=== PATIENT | female | born 1965 | race Caucasian/White ===

== ENCOUNTER 2021-11-12 13:26 | Outpatient (RCR) | payer BC, SELFPAY | END 2021-11-29 13:12 | disposition home or self-care (01) | PROVIDERS: PCP Family Medicine; Visit Provider Family Medicine | DX: M54.2 Cervicalgia (principal); Z51.89 Encounter for other specified aftercare | CPT/HCPCS: 97140; 97162 ==

== ENCOUNTER 2022-09-17 11:00 | Emergency (ER) | payer BC, SELFPAY ==
[2022-09-17] VITALS (7 sets, daily range): BP systolic 106–108; BP diastolic 65–70; PULSE 85–100; RESP 18; TEMP 36.4; O2SAT 95–100; BMI 20.9
[2022-09-17] MEDS: 0.9 % SODIUM CHLORIDE 1000 ml 1,000 ML IV ×2 (12:03→13:12)
[2022-09-17] MEDS: ONDANSETRON 2 MG/ML inj 4 MG IVP (12:04)
[2022-09-17] MEDS: KETOROLAC 30 MG/ML inj IVP (12:06)
[2022-09-17] MEDS: diphenhydrAMINE 50 MG/ML inj 25 MG IVP (12:09)
[2022-09-17] MEDS: LORazepam 2 MG/ML inj 0.5 MG IVP (12:12)
--- NOTE | 2022-09-17 12:38 | ED.HA ---
HPI - Headache General Date Seen: 09/17/22 Chief Complaint: Headache/Migraine Stated Complaint: migraine/vomiting Time Seen by Provider: 09/17/22 11:03 Source: patient Mode of arrival: ambulatory Limitations: no limitations History of Present Illness HPI Narrative: Patient is a very nice 56 year old female presents here with the headache, this started yesterday, is characteristic of her headaches although seemingly more intense than it normally is. She did try to take 400 mg of ibuprofen overnight, but has had problems with vomiting, she has vomited up 4 times, and nausea associated with this, she describes her headache is bitemporal, she was on Zomig in the past but told to stop this is or some question of whether not she had previous TIAs. She denies a history of fevers chills head injury associated with this of visual changes or any auras. She does get headaches which she describes as migrainous which typically are like this, although not as intense. Denies a history of tick bites recent travel history or any other sickness leading up to this. Denies a history of alcohol or drugs, works at the [employer] which is very stressful. She has had previous neuro imaging done MD elicited complaint: headache Onset description: gradually Severity: severe Quality & Timing: aching, throbbing, progressively worsening and similar to previous headaches Exacerbating factors: light and noise Relieving factors: rest and dark room Context: occurred at rest Associated symptoms: none Treatments prior to arrival: ibuprofen Related Data Home Medications Medication Instructions Recorded Confirmed mirtazapine 15 mg tablet 7.5 mg PO DAILY 09/17/22 09/17/22 Allergies Allergy/AdvReac Type Severity Reaction Status Date / Time amoxicillin Allergy Verified 09/17/22 11:29 Review of Systems Status of ROS: Reports: 10 or more systems reviewed and unremarkable except as noted in History and below PFSH PFS Social History Smoking Status: Never smoker Do you use any of these nicotine containing products: None Second hand tobacco smoke exposure: No How often do you have a drink containing alcohol: monthly or less How many standard drinks containing alcohol do you have on a typical day: 1 or 2 How often do you have six or more drinks on one occasion: Never AUDIT-C Alcohol total score: 1 Non-prescribed substance use: denies use service: No Exam Narrative: Exam Narrative: Patient is speaking normally, no problem with slurring words, oriented x3. Head eyes ears nose and throat exam show equal pupils, no scleral icterus, extraocular muscles are normal, no facial droop, speech is normal, trachea normal and midline. Thyroid normal midline palpable not enlarged no meningismus is noted,. Chest shows symmetrical rise bilaterally, normal auscultation with no wheezes, no increased work of breathing, no overt bruising or lesions seen, no tenderness is noted on auscultation. Heart sounds normal with no S3-S4 no murmurs clicks or gallops. Abdomen shows no obvious masses or hepatosplenomegaly, no organomegaly, bowel sounds are normal in all quadrants. No tenderness is noted also in all quadrants. Upper and lower extremities show normal power, normal range of motion, pulses are normal, sensations normal, fine motor movements are normal, pelvis is stable to rocking. Cervical spine shows normal range of motion, and palpably not tender. Thoracic spine shows normal range of motion, and palpably not tender, lumbar spine shows no tenderness to palpation percussion and is otherwise normal range of motion. Skin shows no rashes, petechiae or eccymosis. Good power in upper lower extremities symmetrical, fingers nose testing normal, and rapid alternating movements normal. Did not see her walk in but her nurse tells me that she was not ataxic Const: Vital Signs, click to edit/add: Vital Signs - 24 hr 09/17/22 11:27 Temperature 97.6 F Pulse Rate [Right Pulse Oximeter] 85 Respiratory Rate 18 Blood Pressure [Ri ght Upper Arm] 106/70 Pulse Oximetry 100 Oxygen Delivery Me thod Room Air Documenting provider has reviewed patient's vital signs: yes Course Reevaluation(s) Time of Reevaluation #1: 13:27 Reevaluation #1: Patient reports that she is improved, I did associate professor of counseling her that we should give her 2nd bag of fluid, I reviewed the previous CT done on a previous admission, this was normal, I do not have access to the [facility] MRI from her visit at [facility]. She was comfortable with going home, she has person to drive her. Will give her prescription for some Zofran also too. Vital Signs Vital signs: Initial Vital Signs Temperature 97.6 F 09/17/22 11:27 Temperature Source Temporal Artery Scan 09/17/22 11:27 Pulse Rate 85 09/17/22 11:27 Respiratory Rate 18 09/17/22 11:27 Blood Pressure 106/70 09/17/22 11:27 Blood Pressure Mean 82 09/17/22 11:27 Blood Pressure Position Sitting 09/17/22 11:27 Pulse Oximetry 100 09/17/22 11:27 Oxygen Delivery Method Room Air 09/17/22 11:27 Vital Signs Temperature 97.6 F 09/17/22 11:27 Pulse Rate 85 09/17/22 11:27 Respiratory Rate 18 09/17/22 11:27 Blood Pressure 106/70 09/17/22 11:27 Pulse Oximetry 100 09/17/22 11:27 Oxygen Delivery Method Room Air 09/17/22 11:27 Temperature 97.6 F 09/17/22 11:27 Pulse Rate 85 09/17/22 11:27 Respiratory Rate 18 09/17/22 11:27 Blood Pressure 106/70 09/17/22 11:27 Pulse Oximetry 100 09/17/22 11:27 Oxygen Delivery Method Room Air 09/17/22 11:27 MDM - Headache MDM Narrative Medical decision making narrative: Life-threatening differential diagnosis include subarachnoid hemorrhage, meningitis, encephalitis, carbon monoxide poisoning, and intracerebral hemorrhage. Other differential diagnosis include but not limited to migraine, cluster headache, tension headache, SALES REPRESENTATIVE vasculitis, mass lesion, temporal arteritis, click acute closed angle glaucoma, septal and trigeminal neuralgia, sinusitis, closed head injury, and stroke I am reassured that this is like her previous headaches although worse, I have counseled her that I would like to start IV fluids, and medications see we can improve this I went risks benefits of the medications we described, and she would like to try these. She will need a explosives truck driver to take her home, and she will be tired. I do not think at the present time we need neuro imaging, or laboratory work and she is in agreement Discharge Plan Discharge Clinical Impression: Migraine, Headache Patient Disposition: Home w/ Parent or Adult Condition: Improved Instructions: Migraine Headache (ED), Acute Headache (ED) Additional Instructions: Home rest sleep, may use ibuprofen better dose would be 600 mg p.o. t.i.d., prescription given for nausea medicine that you can use. Follow-up with primary care for discussion return here if signs and symptoms of worsening. Activity Level: Light activity Prescriptions: No Action mirtazapine 15 mg tablet 7.5 mg PO DAILY Follow Up/Referrals: Cyndie Romero DO [Primary Care Provider] - Stand Alone Forms: [employer] Info Instructions
[2022-09-17] MEDS: METOCLOPRAMIDE HCL 10 MG in 0.9 % SODIUM CHLORIDE 100 ml 100 ML 306 MG IVPB (13:09)
== END 2022-09-17 14:38 | disposition home or self-care (01) ==
PROVIDERS: Emergency Provider Family Medicine; PCP Family Medicine
DX: R51.9 Headache, unspecified (principal)
CPT/HCPCS: 96365; 96375; 99284; J1200; J1885; J2060; J2405; J2765; J7030

== ENCOUNTER 2024-05-15 02:29 | Emergency (ER) | payer BC, SELFPAY ==
--- OUTSIDE RECORDS SUMMARY | 2024-05-15 02:31 | XMS_ITS | Clinical Summary ---
Author Organization [employer] [facility] Address [place], [place] [address] Care Team Providers Care Inside Sales Account Representative Name Role Phone Cyndie Romero DO Primary Care Provider [phone] Allergies Active Allergy Reactions Criticality Noted Date Comments Amoxicillin Rash 10/03/2013 Desipramine Hives,Rash 07/15/2020 Medications ibuprofen (ADVIL; MOTRIN) 200 mg tablet Take 2 tablets by mouth 4 times daily if needed. 0 10/03/2013 Active aspirin (ECOTRIN) 81 mg enteric coated tabletIndication s:Family history of ischemic heart disease Take 1 tablet by mouth once daily with a meal. 30 tablet 03/17/2020 10:40 AM SEO MARKETING SPECIALIST 03/18/2020 Active mirtazapine (REMERON) 15 mg tabletIndication s:Generalized anxiety disorder Take 1 Tablet (15 mg) by mouth at bedtime. 90 Tablet 3 09/18/2023 Active estradioL (ESTRACE) 0.01% (0.1 mg/g) vaginal creamIndications :Urethral polyp Insert 1 g into the vagina every Monday and Monday. 1 Each 3 09/18/2023 Active cholecalciferol (VITAMIN D3) 50,000 unit capsuleIndicatio ns:Vitamin D deficiency Take 1 Capsule (50,000 units) by mouth once weekly. 12 Capsule 09/19/2023 Active ZOLMitriptan (ZOMIG) 5 mg tabletIndication s:Migraine without aura and without status migrainosus, not intractable Take 1 Tablet (5 mg) by mouth 2 times daily if needed for Migraine. Give at minimum 2hrs apart. Max Dose: 10mg per 24hrs.TAKE 1 TABLET BY MOUTH 2 TIMES DAILY IF NEEDED FOR MIGRAINE. GIVE AT MINIMUM 2 HRS APART. MAX 2 TABLETS PER 24 HOURS 12 Tablet 1 01/01/2024 Active Active Problems Problem Noted Date Diagnosed Date Pap smear for cervical cancer screening 09/27/19 24 Overview (09/27/2023): 09/2023 NIL/HPV negative Plan: HPV based testing in 5 years Seizure disorder 03/17/2020 Overview (03/17/2020): Temporal discharges on EEG 03/16/2020 c/w seizure, which explains her presenting sxs. of expressive aphasia. Started on Keppra. Mitral valve insufficiency 05/29/2019 Chest discomfort 10/03/2013 Overview (10/11/2013): -10/08/2013 Stress ECHO Stress echo negative for ischemia at an adequate workload. Subjectively negative for anginal symptoms. Fair exercise tolerance. Stress EKG is borderline. Akash protocol for 9 minutes and 1 second, stopped due to fatigue. Resting heart rate of 102 increased to 159, which is 99% of her maximal age- predicted heart rate. Resting blood pressure of 102/60mmHg increased to 160/80. The double product was 27,000. Family history of ischemic heart disease 014 Overview (10/03/2013): Mother CO age 48 Palpitations 09/30/2013 Overview (10/17/2013): -03/02/2011 ECHO Anterior leaflet of the mitral valve is mildly thickened. I believe this is probably a myxomatous change and not vegetation. However, if there are fevers present then consideration for endocarditis. Sinus rhythm. Left ventricular ejection fraction is vigorous, 60%. Right ventricular contraction is normal. Mitral valve prolapse is present, I believe bileaflet based on image #7. The anterior leaflet of the mitral valve is thickened. Mitral insufficiency is visually moderate. The aortic, tricuspid and pulmonic valve are intact. The left atrium is mildly dilated. The right atrium is normal. There is no pericardial effusion. The inferior vena cava is normal. -07/18/2012 Holter monitor Sinus rhythm with HR 59 to 134 bpm with an average rate 81 bpm. There were no pauses. No ventricular ectopy. Rare ectopic atrial premature beats (4). One triplet, rate 160 bpm. Diary entry of heart pounding, felt like it was racing Sinus rhythm rate 113 bpm. -10/08/2013 ECHO Normal LV function, ejection fraction 65%. Moderate mitral regurgitation with anterior mitral leaflet prolapse. Mild tricuspid regurgitation. Borderline left atrial enlargement. -10/08/2013 Holter monitor Sinus rhythm with HR 53 to 150 bpm with an average rate of 84 bpm. No pauses. 1 isolated ventricular event. 9 supraventricular events isolated and 1 couplet. No symptoms recorded. Migraine headache 08/23/2013 Generalized anxiety disorder 04/19/2013 Encounters Date Type Department Care Team Description 05/14/2024 11:15 AM SEO MARKETING SPECIALIST Ancillary Procedure [facility] [address] [place] [address] Arrived 05/14/2024 10:45 AM SEO MARKETING SPECIALIST Office Visit [facility] [address] [place] [address] Shira Olvera PA Lump (Back) 05/14/2024 Travel from Last 3 Months Immunizations Name Administration Dates Next Due COVID-19 vaccine ([employer] 30mcg/0.3mL) P F, MDV 11/30/2020,11/03/2020 Influenza Virus, Unspecified 03/24/2010 Td (Age >=7 Years) 06/30/2003 Tdap 09/16/2010 Family History Medical History Relation Name Comments Other Brother Sudden ag e 52 either CO or epilepsy Pernicious anemia Brother Heart Disease Mother CO age 48 Hypertension Mother Pernicious anemia Paternal Grandfather Cancer-breast No Family History Cancer-colon No Family History Cancer-ovarian No Family History Cancer-prostate No Family History Relation Name Status Comments Brother Mother Paternal Grandfather Social History Tobacco Use Types Packs/Day Years Used Date Smoking Tobacco: Never Smokeless Tobacco: Never Tobacco Cessation:Counseling Given: Yes Alcohol Use Standard Drinks/Week Comments No 0 (1 standard drink = 0.6 oz pur e alcohol) minimal PHQ-2 Answer Date Recorded PHQ-2 TOTAL SCORE 3 09/18/2023 Social Connections Answer Date Recorded Do you often feel lonely or isolated from those around you? 0 09/18/2023 Financial Resource Strain Answer Date R ecorded Difficulty of Paying Living Expenses 3 09/18/2023 Difficulty of Paying Living Expenses Not on file 09/18/2023 Food Insecurity Answer Date Recorded Do you worry your food will run out before you are able to buy more? 1 09/18/2023 Transportation Needs Answer Date Record ed Does lack of transportation keep you from medica l appointments? 1 09/18/2023 Does lack of transportation keep you from work, meetings or getting things that you need? 1 09/18/2023 Housing Stability Answer Date Recorded What is your housing situation today? 1 09/18/2023 Utilities Answer Date Recorded Do you have trouble paying f or utilities (for example, heat, electricity, water, phone)? 1 09/18/2023 Comments No Sex and Gender Information Value Date Recorded Sex Assigned at Not on file Legal Sex Female 6:50 AM SEO MARKETING SPECIALIST Gender Identity Not on file Sexual Orientation Not on file Obstetrics History Last Filed Vital Signs Vital Sign Reading Time Taken Comments Blood Pressure 130/84 05/14/2024 10:43 AM SEO MARKETING SPECIALIST Pulse 106 05/14/2024 10:43 AM SEO MARKETING SPECIALIST Temperature 36.9 C (98.4 F) 11/24/2022 9:35 AM CDT Respiratory Rate 18 03/17/2020 9:00 AM SEO MARKETING SPECIALIST Oxygen Saturation 100% 05/14/2024 10: 43 AM SEO MARKETING SPECIALIST Inhaled Oxygen Concentration - - Weight 47.6 kg (104 lb 14.4 oz) 09/18/2023 8:18 AM CDT Height 157.5 cm (5' 2) 09/18/2023 8:18 AM CDT Body Mass Index 19.19 09/18/2023 8:18 AM CDT Plan of Treatment Upcoming Encounters Date Type Department Care Team (Late st Contact Info) Description 06/11/2024 8:30 AM CDT Office Visit [facility] [address] [place] [address] Cyndie Romero, [address] [place] [address] Health Maintenance Due Date Last Done Comments Pneumococcal series for age 50+ (1 of 2 - PCV) 10/30/1982 Colonoscopy through age 75 10/30/2008 Zoster (shingles) series for age 50+ (1 of 2) 10/30/2013 Tetanus booster 09/16/2020 09/16/2010, 06/30/2003 COVID-19 vaccine series ( season) 2023 11/30/2020, 11/03/2020 Influenza for age 50-64 12/03/2023 03/24/2010 BMI (ht and wt on same day) for age 18+ 09/17/2024 09/18/2023, 08/09/2022, 05/29/2019 Depression screening for age 12+ 09/17/2024 09/18/2023, 08/09/2022, 08/09/2022, Additional history exists Mammogram for age 45-75 09/21/2024 09/22/19 24, 08/19/2022, 01/26/2021, Additional history exists Lipids for age 45-75 09/17/2028 09/18/2023, 08/09/2022, 03/16/2020 Pap test for age 21-65 09/17/2028 09/18/2023, 2023 RSV vaccine for adults or (1 - 1-dose 75+ series) 10/30/2038 Tdap Completed 09/16/2010 HIV for age 15-65 Completed 08/09/2022 Hepatitis C screening for ag e 18-79 Completed 08/09/2022 Procedures Procedure Name Priority Date/Time Associated Diagnosis Comments US BACK SOFT TISSUE UPPER MIGUEL 05/14/2024 11:25 AM SEO MARKETING SPECIALIST Mass of subcutaneous tissue of back XR MAMMO ABIDA BILAT SCREEN Routine 09/22/2023 3:48 PM CDT Visit for screening mammogram LIPID PANEL W REFLEX MEASURED LDL Add On 09/18/2023 9:03 AM CDT Screening cholesterol level HPV HIGH RISK Routine 09/18/2023 8:54 AM CDT Screening for cervical cancer LC HIV-1/O/2, 4TH GENERATION Routine 08/09/2022 3:10 PM CDT Encounter for screening for HIV LC HCV ANTIBODY RFX TO QUANT PCR Routine 08/09/2022 3:10 PM CDT Need for hepatitis C screening test from Last 3 Months or Most Recently Relevant to Health Maintenance Results * US BACK SOFT TISSUE UPPER (05/14/2024 11:25 AM SEO MARKETING SPECIALIST) Anatomical Region Laterality Modality Ultrasound 05/14/2024 11:3 3 AM SEO MARKETING SPECIALIST Narrative 05/14/2024 11:33 AM SEO MARKETING SPECIALIST For Patients: As a result of the Century Cures Act, medical imaging exams and procedure reports are released immediately into your electronic medical record. You may view this report before your referring provider. If you have questions, please contact your health care provider. Indication: Mass of subcutaneous tissue of back Technique: Grayscale and color Doppler ultrasound of the left upper back soft tissues performed. Comparison: None Findings: Circumscribed isoechoic nonvascular structure within the subcutaneous fat in the left upper back measures 3.8 x 5.0 x 0.5 cm. No fluid collection or shadowing lesion. Impression: Subcutaneous lipoma measures 3.8 x 5.0 x 0.5 cm. Dictated by Iron Mackey MD @ 05/14/2024 11:33:30 AM (Electronically Signed) Procedure Note Iron Mackey MD - 05/14/2024 For Patients: As a result of the Cures Act, medical imagingexams and procedure reports are released immediately into your electronicmedical record. You may view this report before your referring provider.If you have questions, please contact your health care provider. Indication: Mass of subcutaneous tissue of back Technique: Grayscale and color Doppler ultrasound of the left upper back soft tissuesperformed. Comparison: None Findings: Circumscribed isoechoic nonvascular structure within the subcutaneous fatin the left upper back measures 3.8 x 5.0 x 0.5 cm. No fluid collection orshadowing lesion. Impression: Subcutaneous lipoma measures 3.8 x 5.0 x 0.5 cm. Dictated by Iron Mackey MD @ 05/14/2024 11:33:30 AM (Electronically Signed) us Shira WALTER US Final Result * XR MAMMO ABIDA BILAT SCREEN (09/22/2023 3:48 PM CDT) Anatomical Region Laterality Modality BREASTS, Breast Left, Breast Right Bilateral Mammography Impressions 09/22/2023 4:08 PM CDT There is no radiographic evidence for malignancy. Recommend annual mammograms. MAMMOGRAM ASSESSMENT: ACR 1 Negative PATIENTS: You will also receive a letter with your examination results in an easy to read format. If you have questions about your results, please contact your referring provider. Narrative 09/22/2023 4:08 PM CDT For Patients: As a result of the Century Cures Act, medical imaging exams and procedure reports are released immediately into your electronic medical record. You may view this report before your referring provider. If you have questions, please contact your health care provider. XR MAMMO ABIDA BILAT SCREEN [[id number]] CLINICAL HISTORY: This is an asymptomatic 57 y.o. patient. INDICATION FOR EXAM: Mammogram Screening. TECHNIQUE: CC & MLO views were obtained. This study was evaluated with the assistance of Computer-Aided Detection. Breast Tomosynthesis was used in interpretation. COMPARISON FILM: Yes 08/19/22 [facility] [facility] FINDINGS: The breasts are heterogeneously dense, which may obscure small masses. There are no dominant masses, suspicious micro calcifications or areas of architectural distortion. us Cyndie Stephanie Usmansamanthara DO MAMMO Final Result * LIPID PANEL W REFLEX MEASURED LDL (09/18/2023 9:03 AM CDT) CHOLESTEROL,TOTAL 182 100 - 199 mg/dL 09/18/2023 7:16 PM CDT [facility] Comment: Cholesterol, Total Reference Ranges Desirable <200 mg/dL Borderline 200-239 mg/dL High >=240 mg/dL TRIGLYCERIDES 132 <150 mg/dL 09/18/2023 7:16 PM CDT [facility] HDL CHOLESTEROL 54 >40 mg/dL 7:16 PM CDT [facility] NON-HDL CHOLESTEROL 128 <145 mg/dl 09/18/2023 7:16 PM CDT [facility] CHOL/HDL RATIO 3.37 <4.50 09/18/2023 7:16 PM CDT [facility] LDL CHOLESTEROL 102 <=130 mg/dL 09/18/2023 7:16 PM CDT [facility] VLDL CHOLESTEROL 26 <=30 mg/dL 09/18/2023 7:16 PM CDT [facility] PROVIDER ORDERED STATUS RANDOM 09/18/2023 7:16 PM CDT [facility] Blood BLOOD SPECIMEN / Unknown Venipuncture / Unknown 09/18/2023 9:03 AM CDT 09/18/2023 9:06 AM CDT us [id number] CHEMISTRY Final Result Performing Organization Address [facility] Co de Phone Number [facility] [address] [place] [address], * HPV HIGH RISK (09/18/2023 8:54 AM CDT) TYPE 16 Negative Negative 09/20/2023 3:46 PM CDT [facility] TYPE 18 Negative Negative 09/20/2023 3:46 PM CDT [facility] OTHER HIGH RISK TYPES Negative Negative 09/20/2023 3:46 PM CDT [facility] Other (Cervical) Non-Blood / Unknown 09/18/2023 8:54 AM CDT 09/19/2023 8:43 AM CDT Narrative [facility] - 09/20/2023 3:46 PM CDT HPV types 16, 18, 31, 33, 35, 39, 45, 51, 52, 56, 58, 59, 66 and 68 DNA were undetectable or below the pre-set threshold. Methodology: edPULSEas 4800 HPV Test [id number] MICROBIOLOGY Final Result Performing Organization Address [facility] Co de Phone Number [facility] [address] [place] [id number], * HCV ANTIBODY RFX TO QUANT PCR (08/09/2022 3:10 PM CDT) Pathologist [facility] HCV Ab Non Reactive Non Reactive 08/12/2022 3:08 AM CDT [facility] ([facility]) Blood BLOOD SPECIMEN / Unknown Venipuncture / Unknown 08/09/2022 3:10 PM CDT 08/09/2022 3:13 PM CDT [facility] ([facility]) - 08/12/2022 3:08 AM CDT Performed at: [address] [place] [id number] Grease Renderer: Noe Peñaloza MD, Phone: [phone] [facility] Final Resu lt Performing Organization Address City/[facility]/ZIP Co de Phone Number [facility] ([facility]) [address] [place] [address], * HIV-1/O/2, 4TH GENERATION (08/09/2022 3:10 PM CDT) Pathologist [facility] HIV Scr 4th Gen Non Reactive Non Reactive 08/11/2022 9:06 PM CDT [facility] ([facility]) Comment: HIV Negative HIV-1/HIV-2 antibodies and HIV-1 p24 antigen were NOT detected. There is no laboratory evidence of HIV infection. Blood BLOOD SPECIMEN / Unknown Venipuncture / Unknown 08/09/2022 3:10 PM CDT 08/09/2022 3:13 PM CDT [facility] ([facility]) - 08/11/2022 9:06 PM CDT Performed at: [address] [place] [id number] Grease Renderer: Noe Peñaloza MD, Phone: [phone] [facility] Final Resu lt Performing Organization Address City/[facility]/ZIP Co de Phone Number [facility] ([facility]) [address] [place] [address], from Last 3 Months or Most Recently Relevant to Health Maintenance Insurance [employer] Advance Directives Documents on File Type Date Recorded Patient Baggage Security Checker Expl anation Healthcare Directive 11/17/2020 021 * Full Code (Latest Code Status on File) Date Activated Date Inactivated Comments 03/15/2020 8:55 PM 03/17/2020 2:53 PM Question Answer Comments Code Status Discussion: Discussed Care Teams Inside Sales Account Representative Relationship Specialty Start Date End Date Cyndie Romero [place] [address] PCP - General Family Practice 08/19/22
[2024-05-15 02:37] VITALS: BP 115/81; PULSE 96; RESP 22; TEMP 36.6; O2SAT 100; BMI 18.5
--- NOTE | 2024-05-15 02:51 | ED.GENADULT ---
HPI - General Adult General Chief complaint: Back Injury/Pain Stated complaint: Severe right side and back pain Time Seen by Provider: 05/15/24 02:50 History of Present Illness HPI narrative: Yesterday left work early d/t right sided back pain, went away after two hours, went to bed, restarted at approx 0200 . Began right after eating lunch, no trouble with light dinner. states of nausea. denies difficulty urinating. states of some relief when laying down with knees up. 58-year-old woman presenting to the emergency department with complaint of right side abdomen and back pain. Began yesterday at work which point she went home minute resolved after couple of hours and started again now this morning maybe not quite as intense but still quite bad. Sharp. Settles then with a residual ache. Then sharp. Feels bit better bring her knees up. No dysuria frequency or hematuria. Does not have a history of food intolerances or heartburn. With later questioning she does admit she has had some kidney stones but she says on the left side and then with further reflection she says well maybe this could feel different. But notes also that she had hematuria when she had left-sided kidney stones and she has not had hematuria today. Remote neck fracture apparently as a kid. No significant history of back problems otherwise. Related Data Home Medications ?Medication ?Instructions ?Recorded ?Confirmed mirtazapine 15 mg tablet 7.5 mg PO DAILY 09/17/22 09/17/22 Previous Rx's ?Medication ?Instructions ?Recorded tamsulosin 0.4 mg capsule (Flomax) 0.4 mg PO DAILY #15 caps 05/15/24 Allergies Allergy/AdvReac Type Severity Reaction Status Date / Time amoxicillin Allergy Verified 09/17/22 11:29 Review of Systems Status of ROS: Reports: 6 or more systems reviewed and unremarkable except as noted in History and below [facility] Social History Smoking Status: Never smoker Do you use any of these nicotine containing products: None Second hand tobacco smoke exposure: No How often do you have a drink containing alcohol: monthly or less How many standard drinks containing alcohol do you have on a typical day: 1 or 2 How often do you have six or more drinks on one occasion: Never AUDIT-C Alcohol total score: 1 Non-prescribed substance use: denies use service: No Exam Narrative: Exam Narrative: Pleasant. Quiet. Blunted affect. Slim, small stature. Skin is warm and dry. Knees are bunched up, flexed at the hips. Well-perfused peripherally. Moving all extremities without difficulty. Abdomen is soft flat and nontender. Flanks also not clearly tender. Heart in elevated rate but regular rhythm. Lungs are clear. Const: Vital Signs, click to edit/add: Vital Signs - 24 hr 05/15/24 02:37 Temperature 97.9 F Pulse Rate [Pulse Oximeter] 96 Respiratory Rate 22 [facility] 115[facility]81 Pulse Oximetry 100 Oxygen Delivery Me thod Room Air Documenting provider has reviewed patient's vital signs: yes Course Vital Signs Vital signs: Initial Vital Signs Temperature 97.9 F 05/15/24 02:37 Temperature Source Temporal Artery Scan 05/15/24 02:37 Pulse Rate 96 05/15/24 02:37 Pulse Rhythm Regular 05/15/24 02:37 Respiratory Rate 22 05/15/24 02:37 Blood Pressure 115/81 05/15/24 02:37 Blood Pressure Mean 92 05/15/24 02:37 Blood Pressure Position Sitting 05/15/24 02:37 Pulse Oximetry 100 05/15/24 02:37 Oxygen Delivery Method Room Air 05/15/24 02:37 Vital Signs Temperature 97.9 F 05/15/24 02:37 Pulse Rate 96 05/15/24 02:37 Respiratory Rate 22 05/15/24 02:37 Blood Pressure 115/81 05/15/24 02:37 Pulse Oximetry 100 05/15/24 02:37 Oxygen Delivery Method Room Air 05/15/24 02:37 Temperature 97.9 F 05/15/24 02:37 Pulse Rate 88 05/15/24 04:38 Respiratory Rate 18 05/15/24 04:38 Blood Pressure 120/72 05/15/24 04:38 Pulse Oximetry 99 05/15/24 04:38 Oxygen Delivery Method Room Air 05/15/24 04:38 Medications Administered Medications: Discontinued Medications Generic Name Dose Route Start Last Admin Trade Name Freq PRN Reason Stop Dose Admin Lactated Ringer's 500 mls @ 500 mls/hr 05/15/24 03:03 05/15/24 04:31 Lactated Ringers 500 Ml IV 05/15/24 04:02 Infused .Q1H ONE Infusion Ketorolac Tromethamine 30 mg 05/15/24 03:06 05/15/24 03:32 Ketorolac 30 Mg/Ml Inj IVP 05/15/24 03:07 30 mg ONCE ONE Administration Ondansetron HCl 4 mg 05/15/24 03:06 05/15/24 03:32 Ondansetron Odt 4 Mg Tab PO 05/15/24 03:07 4 mg ONCE ONE Administration Tamsulosin HCl 0.4 mg 05/15/24 04:22 05/15/24 04:36 Tamsulosin Hcl 0.4 Mg Capsule PO 05/15/24 04:23 0.4 mg DAILY ONE Administration Medical Decision Making MDM Narrative Medical decision making narrative: I would suspect ureteral stone and related colic perhaps traversing the area of the psoas musculature at this point or above. Janet understandably would like to know for sure and so will proceed with CT imaging. I think there have been some concerns of potential appendicitis which I do not think is the issue here. Gallbladder disease possible as well but story and described location not exactly consistent Labs are reassuring though once obtained urine does show blood but no evidence of infection. Given IV fluids and pain controlled with ketorolac. Zofran. Overall is improved on reassessment. CT abdomen pelvis without IV contrast independently reviewed by me does show some punctate stones in the left renal parenchyma with 4-5 mm stone or so as well however the right renal collecting system shows a 4-5 mm proximal ureteral stone. Phleboliths in the pelvis. I suspect the right sided stone is the source of her pain I discussed these findings and treatment plan with Janet. Radiology over-read below Indication: Right flank pain, history of stones. Technique: CT of the abdomen and pelvis was performed without contrast. Comparison: None available. Findings: Visualized lung bases: Minimal dependent atelectasis in the visualized lung bases. Liver: Unremarkable for unenhanced technique. Gallbladder is unremarkable. No biliary ductal dilation. Pancreas: Unremarkable for unenhanced technique. Spleen: Unremarkable for unenhanced technique. Adrenals: Unremarkable for unenhanced technique. Kidneys: There is a right ureteropelvic junction calculus measuring 4 mm with mild right hydronephrosis. Nonobstructing left renal calculi measuring up to 5 mm in the lower pole. Aorta/IVC: Minimal atherosclerotic aortic calcifications without aneurysmal dilation. Lymph nodes: No lymphadenopathy. Bowel: Nonobstructed bowel. Scattered colonic diverticula without findings of acute diverticulitis. Appendix is normal. No intraperitoneal free air or fluid. Pelvis: Unremarkable. Bones/body wall: Unremarkable for age. Impression: 1. Right ureteropelvic junction calculus measuring 4 mm with mild right hydronephrosis. 2. Nonobstructing left renal calculi. Stone is close to 5 mm in size and would expect be passable but is rather high. See patient discharge plan for further discussion As discussed, I would touch base with your urology clinic/group in case you have trouble with stone passage. This should pass but it is still rather high up. Consider calling later today to set up a tentative appointment. Would also today call for a tentative appointment with the primary care provider. Be seen otherwise for uncontrolled pain, associated fever or stone not having passed within 5 days. Consider straining your urine over this next week. Take prescribed Flomax daily for ureteral spasm until suspect stone has passed. Also prescribing from [facility] Zofran for nausea and Percocet for significant pain. Otherwise can take ibuprofen up to 600 mg per dose. Generally stay well-hydrated. Medical Records Medical records reviewed: Yes I reviewed the patient's medical records Lab Data Lab results reviewed: Yes I reviewed the patient's lab results Labs: Lab Results 05/15/24 05/15/24 Range/Units 03:15 04:00 WBC 6.18 (4.50-11.00) K/uL RBC 4.22 (4.00-5.20) m/uL Hgb 12.8 (12.0-16.0) gm/dL Hct 38.3 (33.0-51.0) % MCV 91 (80-100) fL MCH 30 (26-34) pg MCHC 33 (32-36) gm/dL RDW Coeff of Edita 11.6 (11.5-15.5) % Plt Count 259 (140-440) K/uL Neut % (Auto) 66.0 (42.0-72.0) % Lymph % (Auto) 22.0 (20-44) % Harding % (Auto) 9.9 (0.0-11.0) % Eos % (Auto) 1.9 (0.0-7.0) % Baso % (Auto) 0.2 (0.0-3.0) % Neut # (Auto) 4.08 (1.7-7.0) K/uL Lymph # (Auto) 1.36 (0.90-2.90) K/uL Harding # (Auto) 0.60 (0.00-0.90) K/UL Eos # (Auto) 0.12 (0.00-0.50) K/uL Baso # (Auto) 0.01 (0.00-0.30) K/uL Abs Immat Gran (auto) 0.00 (0.00-0.30) K/uL Imm/Tot Granulo (auto) 0.0 % Sodium 139 (135-149) mmol/L Potassium 3.8 (3.6-5.1) mmol/L Chloride 104 (96-114) mmol/L Carbon Dioxide 27 (20-32) mmol/L Anion Gap 8 (7-15) mEq/L BUN 17 (7-30) mg/dL Creatinine 0.7 (0.5-1.5) mg/dL Estimated Creat Clear 61.81 Estimated GFR 99 ml/min Glucose 107 (60-115) mg/dL Calcium 9.3 (8.4-10.6) mg/dL Total Bilirubin 0.3 (0.1-1.5) mg/dL Direct Bilirubin 0.1 (0.0-0.5) mg/dL AST 26 (12-35) U/L ALT 25 (4-35) U/L Alkaline Phosphatase 87 (40-150) U/L Total Protein 6.6 (6.0-8.3) g/dL Albumin 4.3 (3.3-5.0) g/dL Urine Color Yellow (Yellow) Urine Appearance Cloudy A (Clear) Urine pH 5.5 (5.0-8.5) Ur Specific Dwight 1.025 (1.000-1.030) Urine Protein Trace A (Negative) Urine Glucose (UA) Negative (Negative) Urine Ketones Negative (Negative) Urine Blood 3+ A (Negative) Urine Nitrite Negative (Negative) Urine Bilirubin Negative (Negative) Urine Urobilinogen 0.2 (0.2-1.0) Ur Leukocyte Esterase Trace A (Negative) Urine RBC 10-25 A (0-2) Urine WBC 2-5 (0-5) Ur Squamous Epith Cells Few (None-Few) Urine Bacteria Few A (None) Discharge Plan Discharge Clinical Impression: Right ureteral calculus, Ureteral colic Patient Disposition: Home, Self-Care Condition: Stable Additional Instructions: As discussed, I would touch base with your urology clinic/group in case you have trouble with stone passage. This should pass but it is still rather high up. Consider calling later today to set up a tentative appointment. Would also today call for a tentative appointment with the primary care provider. Be seen otherwise for uncontrolled pain, associated fever or stone not having passed within 5 days. Consider straining your urine over this next week. Take prescribed Flomax daily for ureteral spasm until suspect stone has passed. Also prescribing from [facility] Zofran for nausea and Percocet for significant pain. Otherwise can take ibuprofen up to 600 mg per dose. Generally stay well-hydrated. Prescriptions: New tamsulosin [Flomax] 0.4 mg capsule 0.4 mg PO DAILY Qty: 15 0RF No Action mirtazapine 15 mg tablet 7.5 mg PO DAILY Follow Up/Referrals: Cyndie Romero DO [Primary Care Provider] - Stand Alone Forms: [employer] Info Instructions
--- OUTSIDE RECORDS SUMMARY | 2024-05-15 03:10 | XMS_ITS | Clinical Summary ---
Author Organization [employer] [facility] Address [place], [place] [address] Care Team Providers Care Design Tech Name Role Phone Cyndie Romero DO Primary Care Provider [phone] Allergies Active Allergy Reactions Criticality Noted Date Comments Amoxicillin Rash 10/03/2013 Desipramine Hives,Rash 07/15/2020 Medications ibuprofen (ADVIL; MOTRIN) 200 mg tablet Take 2 tablets by mouth 4 times daily if needed. 0 10/03/2013 Active aspirin (ECOTRIN) 81 mg enteric coated tabletIndication s:Family history of ischemic heart disease Take 1 tablet by mouth once daily with a meal. 30 tablet 03/17/2020 10:40 AM SPECIALTIES OPERATOR 03/18/2020 Active mirtazapine (REMERON) 15 mg tabletIndication [...] ischemic heart disease 014 Overview (10/03/2013): Mother OK age 48 Palpitations 09/30/2013 Overview (10/17/2013): -03/02/2011 [...] Department Care Team Description 05/14/2024 11:15 AM SPECIALTIES OPERATOR Ancillary Procedure [facility] [address] [place] [address] Arrived 05/14/2024 10:45 AM SPECIALTIES OPERATOR Office Visit [facility] [address] [place] [address] Shira Olvera PA Lump (Back) 05/14/2024 Travel from Last 3 Months Immunizations Name Administration Dates Next Due COVID-19 vaccine ([employer] 30mcg/0.3mL) P F, MDV 11/30/2020,11/03/2020 Influenza Virus, Unspecified 03/24/2010 Td (Age >=7 Years) 06/30/2003 Tdap 09/16/2010 Family History Medical History Relation Name Comments Other Brother Sudden ag e 52 either OK or epilepsy Pernicious anemia Brother Heart Disease Mother OK age 48 Hypertension Mother Pernicious anemia Paternal [...] on file Legal Sex Female 6:50 AM SPECIALTIES OPERATOR Gender Identity Not on file Sexual Orientation Not on file Obstetrics History Last Filed Vital Signs Vital Sign Reading Time Taken Comments Blood Pressure 130/84 05/14/2024 10:43 AM SPECIALTIES OPERATOR Pulse 106 05/14/2024 10:43 AM SPECIALTIES OPERATOR Temperature 36.9 C (98.4 F) 11/24/2022 9:35 AM CDT Respiratory Rate 18 03/17/2020 9:00 AM SPECIALTIES OPERATOR Oxygen Saturation 100% 05/14/2024 10: 43 AM SPECIALTIES OPERATOR Inhaled Oxygen Concentration - - Weight 47.6 kg (104 lb 14.4 oz) 09/18/2023 8:18 AM CDT Height 157.5 cm (5' 2) 09/18/2023 8:18 AM CDT Body Mass Index 19.19 09/18/2023 8:18 AM CDT Plan of Treatment Upcoming Encounters Date Type Department Care Team (Late st Contact Info) Description 06/11/2024 8:30 AM CDT Office Visit [facility] [address] [place] [address] Cyndie Romero, [address] [place] [address] Health Maintenance Due Date Last Done Comments [...] SOFT TISSUE UPPER MIGUEL 05/14/2024 11:25 AM SPECIALTIES OPERATOR Mass of subcutaneous tissue of back XR [...] BACK SOFT TISSUE UPPER (05/14/2024 11:25 AM SPECIALTIES OPERATOR) Anatomical Region Laterality Modality Ultrasound 05/14/2024 11:3 3 AM SPECIALTIES OPERATOR Narrative 05/14/2024 11:33 AM SPECIALTIES OPERATOR For Patients: As a result of the [...] care provider. XR MAMMO ABIDA BILAT SCREEN [[id number]] CLINICAL HISTORY: This is an asymptomatic 57 y.o. patient. INDICATION FOR EXAM: Mammogram Screening. TECHNIQUE: CC & MLO views were obtained. This study was evaluated with the assistance of Computer-Aided Detection. Breast Tomosynthesis was used in interpretation. COMPARISON FILM: Yes 08/19/22 [employer] [facility] FINDINGS: The breasts are heterogeneously dense, which may obscure small masses. There are no dominant masses, suspicious micro calcifications or areas of architectural distortion. us Cyndie Stephanie Usmansamanthara DO MAMMO Final Result * LIPID PANEL W REFLEX MEASURED LDL (09/18/2023 9:03 AM CDT) CHOLESTEROL,TOTAL 182 100 - 199 mg/dL 09/18/2023 7:16 PM CDT [facility] Comment: Cholesterol, Total Reference Ranges Desirable <200 mg/dL Borderline 200-239 mg/dL High >=240 mg/dL TRIGLYCERIDES 132 <150 mg/dL 09/18/2023 7:16 PM CDT [facility] HDL CHOLESTEROL 54 >40 mg/dL 7:16 PM CDT [facility] NON-HDL CHOLESTEROL 128 <145 mg/dl 09/18/2023 7:16 PM CDT [facility] CHOL/HDL RATIO 3.37 <4.50 09/18/2023 7:16 PM CDT [facility] LDL CHOLESTEROL 102 <=130 mg/dL 09/18/2023 7:16 PM CDT [facility] VLDL CHOLESTEROL 26 <=30 mg/dL 09/18/2023 7:16 PM CDT [facility] PROVIDER ORDERED STATUS RANDOM 09/18/2023 7:16 PM CDT [facility] Blood BLOOD SPECIMEN / Unknown Venipuncture / Unknown 09/18/2023 9:03 AM CDT 09/18/2023 9:06 AM CDT us [employer] CHEMISTRY Final Result Performing Organization Address [facility] Co de Phone Number [facility] [address] [place] [address], * HPV HIGH RISK (09/18/2023 8:54 AM CDT) TYPE 16 Negative Negative 09/20/2023 3:46 PM CDT [facility] TYPE 18 Negative Negative 09/20/2023 3:46 PM CDT [facility] OTHER HIGH RISK TYPES Negative Negative 09/20/2023 3:46 PM CDT [facility] Other (Cervical) Non-Blood / Unknown 09/18/2023 8:54 AM CDT 09/19/2023 8:43 AM CDT Narrative [facility] - 09/20/2023 3:46 PM CDT HPV types 16, 18, 31, 33, 35, 39, 45, 51, 52, 56, 58, 59, 66 and 68 DNA were undetectable or below the pre-set threshold. Methodology: Mettlas 4800 HPV Test [employer] MICROBIOLOGY Final Result Performing Organization Address [facility] Co de Phone Number [facility] [address] [place] [id number], * HCV ANTIBODY RFX TO QUANT PCR (08/09/2022 3:10 PM CDT) Pathologist [facility] HCV Ab Non Reactive Non Reactive 08/12/2022 3:08 AM CDT [facility] ([facility]) Blood BLOOD SPECIMEN / Unknown Venipuncture / Unknown 08/09/2022 3:10 PM CDT 08/09/2022 3:[address] [facility] ([facility]) - 08/12/2022 3:08 AM CDT Performed at: [address] [place] [id number] Assistant Department Manager: Noe Peñaloza MD, Phone: [phone] [facility] Final Resu lt Performing Organization Address City/[facility]/ZIP Co de Phone Number [facility] ([facility]) [address] [place] [address], * HIV-1/O/2, 4TH GENERATION (08/09/2022 3:10 PM CDT) Pathologist [facility] HIV Scr 4th Gen Non Reactive Non Reactive 08/11/2022 9:06 PM CDT [facility] ([facility]) Comment: HIV Negative HIV-1/HIV-2 antibodies and HIV-1 p24 antigen were NOT detected. There is no laboratory evidence of HIV infection. Blood BLOOD SPECIMEN / Unknown Venipuncture / Unknown 08/09/2022 3:10 PM CDT 08/09/2022 3:[address] [facility] ([facility]) - 08/11/2022 9:06 PM CDT Performed at: [address] [place] [id number] Assistant Department Manager: Neo Peñaloza MD, Phone: [phone] [facility] Final Resu lt Performing Organization Address City/[facility]/ZIP Co de Phone Number [facility] [address] [place] [address], from Last 3 Months or Most Recently Relevant to Health Maintenance Insurance [facility] Advance Directives Documents on File Type Date Recorded Patient Pipe Organ Technician Expl anation Healthcare Directive 11/17/2020 021 * Full Code (Latest Code Status on File) Date Activated Date Inactivated Comments 03/15/2020 8:55 PM 03/17/2020 2:53 PM Question Answer Comments Code Status Discussion: Discussed Care Teams Design Tech Relationship Specialty Start Date End Date Cyndie Romero [place] [address] PCP - General Family Practice 08/19/22
[2024-05-15 03:24] LABS: Basophils Absolute Auto 0.01 K/uL (0.00-0.30); Basophils Percent Auto 0.2 % (0.0-3.0); Eosinophils Absolute Auto 0.12 K/uL (0.00-0.50); Eosinophils Percent Auto 1.9 % (0.0-7.0); Hematocrit 38.3 % (33.0-51.0); Hemoglobin* 12.8 gm/dL (12.0-16.0); Lymphocytes Absolute Auto 1.36 K/uL (0.90-2.90); Mean Corpuscular HGB Conc 33 gm/dL (32-36); Mean Corpuscular Hemoglobin 30 pg (26-34); Mean Corpuscular Volume 91 fL (80-100); Monocytes Percent Auto 9.9 % (0.0-11.0); Neutrophils Absolute Auto 4.08 K/uL (1.7-7.0); Platelet Count* 259 K/uL (140-440); RDW Coefficient of Variation % 11.6 % (11.5-15.5); Red Blood Count 4.22 m/uL (4.00-5.20); White Blood Count* 6.18 K/uL (4.50-11.00)
[2024-05-15] MEDS: LACTATED RINGERS 500 ML 500 ML IV (03:24)
[2024-05-15 03:26] LABS: Slide Review Reflex No
[2024-05-15] MEDS: ONDANSETRON ODT 4 MG TAB PO (03:32)
[2024-05-15] MEDS: KETOROLAC 30 MG/ML inj IVP (03:32)
[2024-05-15 03:38] LABS: Albumin* 4.3 g/dL (3.3-5.0); Chloride* 104 mmol/L (96-114); Potassium* 3.8 mmol/L (3.6-5.1); Sodium* 139 mmol/L (135-149)
[2024-05-15 03:40] LABS: Creatinine* 0.7 mg/dL (0.5-1.5); Est. Creatinine Clearance* 61.81; Estimated Glomerular Filt Rate 99 ml/min
[2024-05-15 03:41] LABS: Alanine Aminotransferase* 25 U/L (4-35); Alkaline Phosphatase* 87 U/L (40-150); Anion Gap 8 mEq/L (7-15); Aspartate Amino Transferase* 26 U/L (12-35); Bilirubin Direct* 0.1 mg/dL (0.0-0.5); Bilirubin Total* 0.3 mg/dL (0.1-1.5); Blood Urea Nitrogen* 17 mg/dL (7-30); Calcium* 9.3 mg/dL (8.4-10.6); Carbon Dioxide* 27 mmol/L (20-32); Glucose* 107 mg/dL (60-115); Total Protein* 6.6 g/dL (6.0-8.3)
[2024-05-15 04:14] LABS: Appearance Urine Cloudy (Clear); Bilirubin Urine Negative (Negative); Blood Urine 3+ (Negative); Color Urine Yellow (Yellow); Glucose Urine Negative (Negative); Ketones Urine Negative (Negative); Leukocyte Esterase Urine Trace (Negative); Nitrite Urine Negative (Negative); Protein Urine Trace (Negative); Specific Gravity Urine 1.025 (1.000-1.030); Urobilinogen Urine 0.2 (0.2-1.0); pH Urine 5.5 (5.0-8.5)
[2024-05-15 04:20] LABS: Bacteria Urine Few; Squamous Epithelial Cell Urine Few (None-Few)
[2024-05-15] MEDS: TAMSULOSIN HCL 0.4 MG CAPSULE PO (04:36)
[2024-05-15 04:38] VITALS: BP 120/72; PULSE 88; RESP 18; O2SAT 99
== END 2024-05-15 04:49 | disposition home or self-care (01) ==
PROVIDERS: Emergency Provider Family Medicine; PCP Family Medicine
DX: N20.1 Calculus of ureter (principal)
CPT/HCPCS: 36415; 74176; 80048; 80076; 81001; 85025; 87086; 99284; A9270; J1885; J7120

== ENCOUNTER 2024-09-12 08:33 | Emergency (ER) | payer BC, SELFPAY ==
--- OUTSIDE RECORDS SUMMARY | 2024-09-12 08:35 | XMS_ITS | Clinical Summary ---
Author Organization [employer] [facility] Address [address] [place] [id number] Care Team Providers Care Toll Gate Keeper Name Role Phone Cyndie Romero DO Primary Care Provider Allergies Active Allergy Reactions Criticality Noted Date Comments Amoxicillin Rash 10/03/2013 Desipramine Hives,Rash 07/15/2020 Medications ibuprofen (ADVIL; MOTRIN) 200 mg tablet Take 2 tablets by mouth 4 times daily if needed. 0 10/03/2013 Active aspirin (ECOTRIN) 81 mg enteric coated tabletIndication s:Family history of ischemic heart disease Take 1 tablet by mouth once daily with a meal. 30 tablet 03/17/2020 10:40 AM LEAD APPLICATION ARCHITECT 03/18/2020 Active mirtazapine (REMERON) 15 mg tabletIndication [...] ischemic heart disease 014 Overview (10/03/2013): Mother DE age 48 Palpitations 09/30/2013 Overview (10/17/2013): -03/02/2011 [...] Encounters Date Type Department Care Team Description 09/11/[address] [address] Gal Resendiz MD Appointment 09/10/2024 Nurse Triage [address] [address] Cyndie Romero DO Neurologic Problem 07/05/[address] [address] Dawn Alfaro MD Results 07/02/2024 2:15 PM CDT Office Visit [address] [address] Dawn Alfaro MD Consult (Lipoma on back, lump on her scalp referred by Dr. Romero) 07/02/2024 Travel 06/19/[address] [address] Cyndie Romero DO PRE OP 06/12/[address] [address] Cyndie Romero DO Results from Last 3 Months Immunizations Immunization Administration Dates Next Due COVID-19 vaccine (mSnap 30mcg/0.3mL) P FROBE 11/30/2020,11/03/2020 Influenza Virus, Unspecified 03/24/2010 Td (Age >=7 Years) 06/30/2003 Tdap 09/16/2010 Family History Medical History Relation Name Comments Other Brother Sudden ag e 52 either DE or epilepsy Pernicious anemia Brother Heart Disease Mother DE age 48 Hypertension Mother Pernicious anemia Paternal [...] on file Legal Sex Female 6:50 AM LEAD APPLICATION ARCHITECT Gender Identity Not on file Sexual Orientation Not on file Obstetrics History Last Filed Vital Signs Vital Sign Reading Time Taken Comments Blood Pressure 97/64 07/02/2024 2:16 PM CDT Pulse 86 07/02/2024 2:16 PM CDT Temperature 36.9 C (98.4 F) 11/24/2022 9:35 AM CDT Respiratory Rate 18 03/17/2020 9:00 AM LEAD APPLICATION ARCHITECT Oxygen Saturation 100% 07/02/2024 2:16 PM CDT Inhaled Oxygen Concentration - - Weight 47.9 kg (105 lb 9.6 oz) 07/02/2024 2:16 P M CDT Height 157.5 cm (5' 2) 09/18/2023 8:18 AM CDT Body Mass Index 19.31 09/18/2023 8:18 AM CDT Plan of Treatment Upcoming Encounters Date Type Department Care Team (Late st Contact Info) Description 09/12/2024 3:30 PM CDT Office Visit [facility] [address] [place] [address] Gal Resendiz MD [address] [place] [address] Health Maintenance Due Date Last Done Comments Pneumococcal series for age 50+ (1 of 2 - PCV) 10/30/1982 Colonoscopy through age 75 10/30/2008 Zoster (shingles) series for age 50+ (1 of 2) 10/30/2013 Tetanus booster 09/16/2020 09/16/2010, 06/30/2003 RSV vaccine for adults or (1 - Risk 60-74 years 1-dose series) 2023 COVID-19 vaccine series ( season) 2023 11/30/2020, 11/03/2020 BMI (ht and wt on same day) for age 18+ 09/17/2024 09/18/2023, 08/09/2022, 05/29/2019 Depression screening for age 12+ 09/17/2024 09/18/2023, 08/09/2022, 08/09/2022, Additional history exists Mammogram for age 45-75 09/21/2024 09/22/19 24, 08/19/2022, 01/26/2021, Additional history exists Influenza Vaccine (Season Ended) 2024 03/24/2010 Lipids for age 45-75 09/17/2028 09/18/2023, 08/09/2022, 03/16/2020 Pap test for age 21-65 09/17/2028 09/18/2023, 2023 Tdap Completed 09/16/2010 HIV for age 15-65 Completed 08/09/2022 Hepatitis C screening for age 18-79 Completed 08/09/2022 Hepatitis B series for 19+ Aged Out N o longer eligible based on patient's age to complete this topic Procedures Procedure Name Priority Date/Time Associated Diagnosis Comments PATH TISSUE EXAM Routine 07/02/2024 3:06 PM CDT Lipoma of back XR MAMMO ABIDA BILAT SCREEN Routine 09/22/2023 3:48 PM CDT Visit for screening mammogram LIPID PANEL W REFLEX MEASURED LDL Add On 09/18/2023 9:03 AM CDT Screening cholesterol level SUPPORT DIRECTOR THIN PREP PAP SCREEN IMAGED Routine 09/18/2023 8:54 AM CDT Screening for cervical cancer LC HIV-1/O/2, 4TH GENERATION Routine 08/09/2022 3:10 PM CDT Encounter for screening for HIV LC HCV ANTIBODY RFX TO QUANT PCR Routine 08/09/2022 3:10 PM CDT Need for hepatitis C screening test from Last 3 Months or Most Recently Relevant to Health Maintenance Results * PATH TISSUE EXAM (07/02/2024 3:06 PM CDT) Case Report Pathology Report Case: [id number] Authorizing Provider: Dawn Alfaro MD Collected: 07/02/2024 1506 Ordering Location: [facility] Received: 07/02/2024 1549 Clinic Pathologist: Cyrus Shepherd MD Specimen: Back, left back mass 07/15/2024 3:38 PM CDT [facility] Amendment 07/15/2024 - Extraneous text is removed. 07/15/2024 3:38 PM CDT [facility] Final Diagnosis A) SOFT TISSUE, LEFT BACK, EXCISION: 1. Lipoma 2. Negative for malignancy 07/15/2024 3:38 PM CDT [facility] Amendment electronically signed by Cyrus Shepherd MD on 07/15/2024 at 1538 CDT at 1143 CDT Clinical Information Ms. Sifuentes is a 58 y.o. undergoes excision of left back mass (6 x 4.5 cm). 07/15/2024 3:38 PM CDT [facility] Gross Description A) Received in formalin, labeled with the patient's name and left back mass, is a 5 x 4.8 x 1 cm intact portion of adipose tissue that appears to be encapsulated by a thin fibrous membrane. The specimen is inked black and sectioned. The cut surfaces reveal homogeneous yellow-dodson cut surfaces with no discrete foci of hemorrhage or necrosis identified. Meat Trimmer sections are submitted in 5 cassettes. JPW 07/03/2024 07/15/2024 3:38 PM CDT [facility] Microscopic Description The final diagnosis is based on microscopic examination of appropriate sections of all specimens. 07/15/2024 3:38 PM CDT [facility] Additional Information Interpreted at [facility] - [address] [place] [id number] 07/15/2024 3:38 PM CDT [facility] Other (Back) Non-Blood / Unknown 07/02/2024 3:06 PM CDT 07/02/2024 3:49 PM CDT us Dawn Alfaro MD PATHOLOGY/CYTOLOGY Edite d Result - Final [facility] [address] [place] [address], [place] * XR MAMMO ABIDA BILAT SCREEN (09/22/2023 [...] care provider. XR MAMMO ABIDA BILAT SCREEN [[id number]] CLINICAL HISTORY: This is an asymptomatic 57 y.o. patient. INDICATION FOR EXAM: Mammogram Screening. TECHNIQUE: CC & MLO views were obtained. This study was evaluated with the assistance of Computer-Aided Detection. Breast Tomosynthesis was used in interpretation. COMPARISON FILM: Yes 08/19/22 [facility] 01/26/21 [facility] FINDINGS: The breasts are heterogeneously dense, which may obscure small masses. There are no dominant masses, suspicious micro calcifications or areas of architectural distortion. us Cyndie Stephanie Usmansamantha DO MAMMO Final Result * LIPID PANEL W REFLEX MEASURED LDL (09/18/2023 9:03 AM CDT) CHOLESTEROL,TOTAL 182 100 - 199 mg/dL 09/18/2023 7:16 PM CDT [facility] Comment: Cholesterol, Total Reference Ranges Desirable <200 mg/dL Borderline 200-239 mg/dL High >=240 mg/dL TRIGLYCERIDES 132 <150 mg/dL 09/18/2023 7:16 PM CDT [facility] HDL CHOLESTEROL 54 >40 mg/dL 7:16 PM T [facility] NON-HDL CHOLESTEROL 128 <145 mg/dl 09/18/2023 7:16 PM CDT [facility] CHOL/HDL RATIO 3.37 <4.50 09/18/2023 7:16 PM CDT [facility] LDL CHOLESTEROL 102 <=130 mg/dL 09/18/2023 7:16 PM CDT [facility] VLDL CHOLESTEROL 26 <=30 mg/dL 09/18/2023 7:16 PM CDT [facility] PROVIDER ORDERED STATUS RANDOM 09/18/2023 7:16 PM T [facility] Blood BLOOD SPECIMEN / Unknown Venipuncture / Unknown 09/18/2023 9:03 AM CDT 09/18/2023 9:06 AM CDT us Cyndie Romero DO CHEMISTRY Final Result [facility] [address] [place] [address], [place] * SUPPORT DIRECTOR THIN PREP PAP SCREEN IMAGED [[id number]] (09/18/2023 8:54 AM CDT) Case Report Gynecologic Cytology Report Case: [id number] Authorizing Provider: Cyndie Romero DO Collected: 09/18/2023 0854 Ordering Location: [facility] Received: 09/18/2023 0954 Clinic First Screen: Amna Curry Specimen: SUPPORT DIRECTOR ThinPrep Vial Screening, Cervical 09/26/2023 11:40 AM CDT [facility] INTERPRETATION/ RESULT NEGATIVE FOR INTRAEPITHELIAL LESION OR MALIGNANCY (NIL) (none) 09/26/2023 11:40 AM CDT [facility] ENTRAL LABORATORY at 1140 CDT SPECIMEN ADEQUACY Satisfactory for evaluation Endocervical cells cannot be evaluated due to severe atrophy 09/26/2023 11:40 AM CDT [facility] HPV REQUEST HPV and PAP 09/26/2023 11:40 AM CDT [facility] [employer] [facility] [employer] [facility]-C ENTRAL LABORATORY Date of LMP N/A 09/26/2023 11:40 AM CDT [facility] [employer] [facility] Last Pap Date 2019 09/26/2023 11:40 AM CDT [facility] Last Pap Result First Pap/Unknown 11:40 AM CDT [facility] ENTRAL LABORATORY Abnormal Pap or [place] Bx in last 5 years No 09/26/2023 11:40 AM CDT [facility] Menstrual Status Postmenopausal 09/26/2023 11:40 AM CDT [facility] [place] Bx Done Today No 09/26/2023 11:40 AM CDT [facility] Additional Information None given 09/26/2023 11:40 AM CDT [facility] Comment: Cytology is screened at [facility] - [address], [place] [address] and [facility] - [address] [place] [address], [place] [address] and [facility] - [address] [place] [address] Interpreted at [facility] - [address] [place] [address] Automated Review Successful 09/26/2023 11:40 AM CDT [facility] Comment:Specimen processed s uccessfully by automated police worker device, ThinPrep Imaging System, [employer] ANCILLARY TESTING SUPPORT DIRECTOR HPV Ordered, Please see separate report 09/26/2023 11:40 AM CDT [facility] Note The pap test is a screening technique, not a diagnostic procedure. It is used primarily to screen for squamous cancers and precursor lesions. Published studies have shown that it is subject to both false negative and false positive results. The pap test should not be used as the sole means to diagnose or exclude pre-malignant and malignant lesions. 09/26/2023 11:40 AM CDT [facility] Other (Cervical) Non-Blood / Unknown 09/18/2023 8:54 AM CDT 09/18/2023 9:54 AM CDT us Cyndie Romero DO PATHOLOGY/CYTOLOGY Final Resu lt [facility] [address] [place] [address], [place] * LC HCV ANTIBODY RFX TO QUANT PCR (08/09/2022 3:10 PM CDT) HCV Ab Non Reactive Non Reactive 08/12/2022 3:08 AM CDT [facility] ([facility]) Blood BLOOD SPECIMEN / Unknown Venipuncture / Unknown 08/09/2022 3:10 PM CDT 08/09/2022 3:13 PM CDT [facility] ESOTERIC TESTING (CET) - 08/12/2022 3:08 AM CDT Performed at: [address] [place] [id number] Gambling Cashier: Noe Peñaloza MD, Phone: [phone] [facility] Final Resu lt Performing Organization Address City/[facility]/ZIP Co de Phone Number [facility]OTERIC TESTING ([facility]) [address] [place] [address] * HIV-1/O/2, 4TH GENERATION (08/09/2022 3:10 PM CDT) [facility] HIV Scr 4th Gen Non Reactive Non Reactive 08/11/2022 9:[address] [facility]IC TEST[facility] ([facility]) Comment: HIV Negative HIV-1/HIV-2 antibodies and HIV-1 p24 antigen were NOT detected. There is no laboratory evidence of HIV infection. Blood BLOOD SPECIMEN / Unknown Venipuncture / Unknown 08/09/2022 3:10 PM CDT 08/09/2022 3:13 PM CDT [facility] FOR ESOTERIC TESTING ([facility]) - 08/11/2022 9:06 PM CDT Performed at: [address] [place] [id number] Gambling Cashier: Noe Peñaloza MD, Phone: [phone] us [facility] Final Resu lt Performing Organization Address City/[facility]/ZIP Co de Phone Number [facility] ESOTERIC TESTING ([facility]) [address] [place] [address] from Last 3 Months or Most Recently Relevant to Health Maintenance Insurance [facility] Advance Directives Documents on File Type Date Recorded Patient Meat Trimmer Expl anation Healthcare Directive 11/17/2020 021 * Full Code (Latest Code Status on File) Date Activated Date Inactivated Comments 03/15/2020 8:55 PM 03/17/2020 2:53 PM Question Answer Comments Code Status Discussion: Discussed Care Teams Toll Gate Keeper Relationship Specialty Start Date End Date Cyndie Romero DO [address] [place] [address] PCP - General Family Practice 08/19/22
[2024-09-12 08:47] VITALS: BP 113/78; PULSE 83; RESP 16; TEMP 36.7; O2SAT 99; BMI 19.2
--- NOTE | 2024-09-12 08:54 | ED.NEUROSD ---
HPI - Neuro Symptoms/Deficit General Time Seen by Provider: 08:55 Date Seen: 09/12/24 Chief Complaint: Neuro Symptoms/Altered Deficit Stated Complaint: seeing flashing lights, vision and speech issues Time Seen by Provider: 09/12/24 08:34 Source: patient and RN notes reviewed Mode of arrival: ambulatory Limitations: no limitations History of Present Illness HPI Narrative: This 58-year-old female with history of migraines in prior retinal tear is coming in with concerns of repeat episodes of flashing lights in lightning bolts in her vision. She has a history of migraines where she will get pain, associated nausea vomiting. She has had ophthalmologic migraines before with light issues like this. She has also had a retinal tear but just suddenly lost vision, went dark below a line. Monday, Monday, Monday and then again this morning she had about 30 minute episodes where she was seen the flashing lights and lightening bolts in her vision. She feels like it has been in both eyes. With the 1st 2 episodes she felt like she was having some word-finding difficulty. There is strong family history of strokes with her brother, her mom and other relatives. Her brother had a stroke at her age in lost vision. She has noted no focal weakness. She did start taking a baby aspirin a few days ago just in case. She did make an appointment with her primary care provider but they called her yesterday in cancel it, told her she needed to go to the ER. She did not go yesterday obviously but when she had another episode today, decided to come to the ER. Her symptoms have already resolved, no visual changes at this time. She did not note any speech issues with the last 2 episodes. She describes the speech issues as word-finding difficulty. She will have palpitations, none associated with these episodes. Absolutely no tobacco products. Related Data Home Medications ?Medication ?Instructions ?Recorded ?Confirmed mirtazapine 15 mg tablet 7.5 mg PO DAILY 09/17/22 09/12/24 aspirin 81 mg capsule 81 mg PO DAILY 09/12/24 09/12/24 zolmitriptan 5 mg tablet 5 mg PO DAILY 09/12/24 09/12/24 Allergies Allergy/AdvReac Type Severity Reaction Status Date / Time amoxicillin Allergy Verified 09/12/24 08:46 Review of Systems Status of ROS: Reports: 6 or more systems reviewed and unremarkable except as noted in History and below [facility] Social History Smoking Status: Never smoker Do you use any of these nicotine containing products: None Second hand tobacco smoke exposure: No How often do you have a drink containing alcohol: monthly or less How many standard drinks containing alcohol do you have on a typical day: 1 or 2 How often do you have six or more drinks on one occasion: Never AUDIT-C Alcohol total score: 1 Non-prescribed substance use: denies use service: No Exam Const: Vital Signs, click to edit/add: Vital Signs - 24 hr 09/12/24 08:47 09/12/24 09:02 09/12/24 11:28 Temperature 98.1 F 98.6 F Pulse Rate [Pulse Oximeter] 83 86 Respiratory Rate 16 18 Blood Pressure [Ri ght Upper Arm] 113/78 120/77 Pulse Oximetry 99 99 97 Oxygen Delivery Me thod Room Air Room Air This 58-year-old female is alert, interactive, no apparent distress. She is ambulatory into the ED of her own accord. Pupils equal round reactive, sclerae clear, extraocular muscle intact. Visual fontana normal in confrontation. Symmetrical facial function, speech normal. Neck supple, no thyromegaly masses or nodules, no jugular venous distension. Lungs are clear, good air entry, no wheezing or crackles, no tachypnea, no accessory muscle use. CV regular rate and rhythm, no murmur, normal S1-S2. Abdomen is soft, nontender, nondistended, no organomegaly, no rebound or guarding. Strength is 5/5 and symmetric throughout both upper and lower extremities. No focal neurologic deficits noted. Documenting provider has reviewed patient's vital signs: yes Course Course ED Course: Doubtful that this is any retinal pathology given it has seem to change between the eyes. She has difficulty deciding if the visual changes or just and 1 eye or not. She certainly is not isolating to 1 eye. She will be placed on cardiac monitoring, pulse oximetry and have an EKG just to ensure no documentable arrhythmia at this time. Will get baseline labs. She understands that I will be talking to Neurology. I highly suspect migrainous etiology but would like to talk to Neurology and see if they would like to proceed with any neuro imaging. She is at baseline without any symptoms at this time. Reevaluation(s) Time of Reevaluation #1: 09:20 Reevaluation #1: Patient was reporting her symptoms were returning. Did order noncontrast head CT. Awaiting to talk to Neurology, they have been paged. Time of Reevaluation #2: 13:15 Reevaluation #2: Reviewed scans with patient, no evidence of stroke. So, these are ocular migraines. 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 Consultations Consultation #1: Stroke Neurology will plan on seeing patient. Have pushed CT images of her head to them. They are aware that we have a window for MRI of brain at 11:00 a.m.. Will await to hear from them and see if they want to proceed with this further neuro imaging. 10:41 a.m.: Did speak with Dr. March from stroke Neurology. He would like to proceed with MR imaging stroke protocol. He believes this to be an ocular migraine but patient has never been confirmed to have ocular migraines. He has discussed the further imaging with her. He would also recommend valproic acid to try to danilo her symptoms, will use 500 mg IV. Time: 09:55 Vital Signs Vital signs: Initial Vital Signs Temperature 98.1 F 09/12/24 08:47 Temperature Source Temporal Artery Scan 09/12/24 08:47 Pulse Rate 83 09/12/24 08:47 Pulse Rhythm Regular 09/12/24 08:47 Pulse Strength 3+ Normal 09/12/24 08:47 Respiratory Rate 16 09/12/24 08:47 Blood Pressure 113/78 09/12/24 08:47 Blood Pressure Mean 89 09/12/24 08:47 Blood Pressure Position Sitting 09/12/24 08:47 Pulse Oximetry 99 09/12/24 08:47 Oxygen Delivery Method Room Air 09/12/24 08:47 Vital Signs Temperature 98.1 F 09/12/24 08:47 Pulse Rate 83 09/12/24 08:47 Respiratory Rate 16 09/12/24 08:47 Blood Pressure 113/78 09/12/24 08:47 Pulse Oximetry 99 09/12/24 08:47 Oxygen Delivery Method Room Air 09/12/24 08:47 Temperature 98.6 F 09/12/24 11:28 Pulse Rate 86 09/12/24 11:28 Respiratory Rate 18 09/12/24 11:28 Blood Pressure 120/77 09/12/24 11:28 Pulse Oximetry 97 09/12/24 11:28 Oxygen Delivery Method Room Air 09/12/24 11:28 Medications Administered Medications: Discontinued Medications Generic Name Dose Route Start Last Admin Trade Name Tadeoq PRN Reason Stop Dose Admin Valproic Acid 500 mg/ Sodium 105 mls @ 105 mls/hr 09/12/24 10:45 09/12/24 13:04 Chloride IVPB 09/12/24 10:46 Infused ONCE ONE Infusion MDM - Neuro Symptoms/Deficit Lab Data Attestation: I reviewed the patient's lab results. Labs: Lab Results 09/12/24 Range/Units 09:44 WBC 4.88 (4.50-11.00) K/uL RBC 4.83 (4.00-5.20) m/uL Hgb 14.7 (12.0-16.0) gm/dL Hct 43.3 (33.0-51.0) % MCV 90 (80-100) fL MCH 30 (26-34) pg MCHC 34 (32-36) gm/dL RDW Coeff of Edita 11.5 (11.5-15.5) % Plt Count 244 (140-440) K/uL Neut % (Auto) 67.1 (42.0-72.0) % Lymph % (Auto) 22.1 (20-44) % [place] % (Auto) 8.2 (0.0-11.0) % Eos % (Auto) 2.0 (0.0-7.0) % Baso % (Auto) 0.4 (0.0-3.0) % Neut # (Auto) 3.27 (1.7-7.0) K/uL Lymph # (Auto) 1.08 (0.90-2.90) K/uL [place] # (Auto) 0.40 (0.00-0.90) K/UL Eos # (Auto) 0.10 (0.00-0.50) K/uL Baso # (Auto) 0.02 (0.00-0.30) K/uL Abs Immat Gran (auto) 0.01 (0.00-0.30) K/uL Imm/Tot Granulo (auto) 0.2 % INR 1.03 (0.91-1.10) APTT 26 (23-33) Seconds Sodium 140 (135-149) mmol/L Potassium 3.8 (3.6-5.1) mmol/L Chloride 104 (96-114) mmol/L Carbon Dioxide 28 (20-32) mmol/L Anion Gap 8 (7-15) mEq/L BUN 13 (7-30) mg/dL Creatinine 0.8 (0.5-1.5) mg/dL Estimated Creat Clear 56.23 Estimated GFR 84 ml/min Glucose 101 (60-115) mg/dL Calcium 9.4 (8.4-10.6) mg/dL Total Bilirubin 0.6 (0.1-1.5) mg/dL AST 32 (12-35) U/L ALT 24 (4-35) U/L Alkaline Phosphatase 83 (40-150) U/L Total Protein 7.4 (6.0-8.3) g/dL Albumin 4.5 (3.3-5.0) g/dL Imaging Data CT scan - head: Attestation: I have reviewed the pertinent imaging results. Radiologist's impression: Patient: JOYCE SAVAGE Facility:?[facility] Patient ID:?[id number] Site Patient ID:?[id number]. Site :?1965 Study:?CT-Head WITHOUT-09/12/2024 9:56:24 AM Ordering Physician:?Aranza Schreiber Final Report: INDICATION: EPISODES OF VISUAL CHANGES, HX OF MIGRAINES. TECHNIQUE: CT head without contrast. COMPARISON: CT head dated 03/15/2020. FINDINGS: CSF spaces: Within normal limits for age. Brain parenchyma and extra-axial spaces: The benites-white differentiation is normal. No sign of mass, hemorrhage, or midline shift. No extra-axial fluid collection. Skull base and calvarium: The visualized paranasal sinuses and mastoid air cells demonstrate no acute findings. Posterior nasal septal leftward osseous spurring and mild deviation. Left scleral band in place. The visualized orbits are otherwise grossly unremarkable. No skull fractures. IMPRESSION: No acute intracranial hemorrhage or mass effect. Please note that all CT scans at this facility use dose modulation, iterative reconstruction, and/or weight-based dosing when appropriate to reduce radiation dose to as low as reasonably achievable. Dictated by William Arteaga MD @ 09/12/2024 10:04:49 AM (Electronic Signature) MR Brain: Attestation: I have reviewed the pertinent imaging results. Radiologist's impression: Patient: JOYCE SAVAGE Facility:?[facility] Patient ID:?[id number] Site Patient ID:?[id number]. Site :?1965 Study:?MRI-Head WO/W DOTAREM 20ML-09/12/2024 12:51:33 PM Ordering Physician:?Aranza Schreiber Final Report: Indication: Visual changes Technique: Noncontrast sagittal T1, axial FLAIR, T2 turbo spine echo, and diffusion weighted images. Supplemental post contrast T1 weighted axial and coronal sequences are provided after administration of 20 ml Dotarem gadolinium-based IV contrast. Comparison: CT head 09/12/2024 Findings: The ventricles, sulci and gyri are normal size, shape and contour for age. Multiple scattered foci of T2 prolongation in the supratentorial subcortical white matter are nonspecific. The midline structures are centrally located with no evidence of shift. There are no suspicious intra or extra-axial fluid collections. No evidence of restricted diffusion to suggest acute ischemia. Expected flow voids in the cavernous carotids and basilar artery. No abnormal contrast enhancement involving the brain parenchyma, meninges, calvarium or skull base. Left scleral buckle. Leftward deviation of the nasal septum. Impression: 1. No acute intracranial abnormality. 2. Few punctate scattered foci of T2 prolongation the supratentorial white are nonspecific but may represent sequela of migraine headaches, prior inflammation, or chronic small vessel disease. 3. No pathologic enhancement. 4. Left scleral buckle. Dictated by Iron Cook MD @ 09/12/2024 12:57:47 PM (Electronic Signature) Patient: JOYCE SAVAGE Facility:?[facility] Patient ID:?[id number] Site Patient ID:?[id number]. Site :?1965 Study:?MRI-Head Angio WO-09/12/2024 12:52:04 PM Ordering Physician:Keira Schreiber Final Report: Indication: visual changes Technique: 3D Kvre-zy-frpcia MR angiogram of the [id number] with 3-dimensional MIP projections were submitted. Comparison: No prior studies available for comparison at this institution. Findings: The visualized first and second order intracranial vessels are unremarkable. No occlusion/filling defect or acquired arterial stenosis identified. No aneurysm or vascular malformation seen. Impression: No evidence of proximal arterial occlusion, aneurysm, dissection, or vascular malformation. Dictated by Iron Cook MD @ 09/12/2024 1:01:18 PM (Electronic Signature) Patient: JOYCE SAVAGE Facility:?[facility] Patient ID:?[id number] Site Patient ID:?[id number]. Site :?1965 Study:?MRI-Neck Angio Angio WO/W DOTAREM 20ML-09/12/2024 12:52:44 PM Ordering Physician:Keira Schreiber Final Report: Indication: Visual changes. Technique: Luir-np-lxpjfb and Gadolinium bolus MR angiogram of the neck with 3D MIP reconstructions provided. All measurements are based on NASCET criteria. Postcontrast images obtained after administration of 20 cc Dotarem Gadolinium-based IV contrast. Comparison: No prior studies available for comparison at this institution. Findings: Both carotid systems are unremarkable in the neck. No evidence for hemodynamically significant internal carotid artery stenosis by NASCET criteria. The cervical segments of both vertebral arteries are patent. The visualized portions of the aortic arch, great vessel origins and proximal subclavian arteries are unremarkable. Impression: Unremarkable MRA of the neck as far as visualized. Dictated by Iron Cook MD @ 09/12/2024 1:03:47 PM (Electronic Signature) ECG Data Attestation: I personally reviewed and interpreted this ECG as follows: ( Normal sinus rhythm, 77 beats per minute. EKG appears normal.) ECG interpretation date: 09/12/24 ECG interpretation time: 09:28 Prior ECG tracings: not available for review Discharge Plan Discharge Clinical Impression: Ocular migraine Patient Disposition: Home, Self-Care Condition: Stable Instructions: Migraine Headache (ED), Ocular Migraine (ED) Additional Instructions: Stay hydrated, can use her Zomig with recurrent issues. Do recommend scheduling a follow-up in clinic, may need to see Neurology for discussion of preventative if you have ongoing issues. Activity Level: Activity as Tolerated Prescriptions: No Action mirtazapine 15 mg tablet 7.5 mg PO DAILY zolmitriptan 5 mg tablet 5 mg PO DAILY aspirin 81 mg capsule 81 mg PO DAILY Follow Up/Referrals: Cyndie Romero DO [Primary Care Provider, Family Practice] Stand Alone Forms: Shipu Info Instructions
[2024-09-12 09:02] VITALS: O2SAT 99
--- NOTE | 2024-09-12 09:45 | CRLHL7_ITS ---
For Patients: As a result of the Century Cures Act, medical imaging exams and procedure reports are released immediately into your electronic medical record. You may view this report before your referring provider. If you have questions, please contact your health care provider. INDICATION: EPISODES OF VISUAL CHANGES, HX OF MIGRAINES. TECHNIQUE: CT head without contrast. COMPARISON: CT head dated 03/15/2020. FINDINGS: CSF spaces: Within normal limits for age. Brain parenchyma and extra-axial spaces: The benites-white differentiation is normal. No sign of mass, hemorrhage, or midline shift. No extra-axial fluid collection. Skull base and calvarium: The visualized paranasal sinuses and mastoid air cells demonstrate no acute findings. Posterior nasal septal leftward osseous spurring and mild deviation. Left scleral band in place. The visualized orbits are otherwise grossly unremarkable. No skull fractures. IMPRESSION: No acute intracranial hemorrhage or mass effect. Please note that all CT scans at this facility use dose modulation, iterative reconstruction, and/or weight-based dosing when appropriate to reduce radiation dose to as low as reasonably achievable. Dictated by William Arteaga MD @ 09/12/2024 10:04:49 AM (Electronically Signed)
[2024-09-12 10:00] LABS: Basophils Absolute Auto 0.02 K/uL (0.00-0.30); Basophils Percent Auto 0.4 % (0.0-3.0); Hematocrit 43.3 % (33.0-51.0); Hemoglobin* 14.7 gm/dL (12.0-16.0); Immature Granulocytes Abs Auto 0.01 K/uL (0.00-0.30); Immature Granulocytes Pct Auto 0.2 %; Lymphocytes Absolute Auto 1.08 K/uL (0.90-2.90); Lymphocytes Percent Auto 22.1 % (20-44); Mean Corpuscular HGB Conc 34 gm/dL (32-36); Mean Corpuscular Hemoglobin 30 pg (26-34); Mean Corpuscular Volume 90 fL (80-100); Monocytes Percent Auto 8.2 % (0.0-11.0); Neutrophils Absolute Auto 3.27 K/uL (1.7-7.0); Neutrophils Percent Auto 67.1 % (42.0-72.0); Platelet Count* 244 K/uL (140-440); RDW Coefficient of Variation % 11.5 % (11.5-15.5); Red Blood Count 4.83 m/uL (4.00-5.20); White Blood Count* 4.88 K/uL (4.50-11.00)
[2024-09-12 10:01] LABS: Slide Review Reflex No
[2024-09-12 10:19] LABS: Albumin* 4.5 g/dL (3.3-5.0); Chloride* 104 mmol/L (96-114); Potassium* 3.8 mmol/L (3.6-5.1); Sodium* 140 mmol/L (135-149)
[2024-09-12 10:21] LABS: INR 1.03 (0.91-1.10); Partial Thromboplastin Time* 26 Seconds (23-33); Prothrombin Time 14.3 Seconds
[2024-09-12 10:22] LABS: Alanine Aminotransferase* 24 U/L (4-35); Alkaline Phosphatase* 83 U/L (40-150); Anion Gap 8 mEq/L (7-15); Aspartate Amino Transferase* 32 U/L (12-35); Bilirubin Total* 0.6 mg/dL (0.1-1.5); Blood Urea Nitrogen* 13 mg/dL (7-30); Carbon Dioxide* 28 mmol/L (20-32); Creatinine* 0.8 mg/dL (0.5-1.5); Est. Creatinine Clearance* 56.23; Estimated Glomerular Filt Rate 84 ml/min; Total Protein* 7.4 g/dL (6.0-8.3)
[2024-09-12 10:23] LABS: Calcium* 9.4 mg/dL (8.4-10.6); Glucose* 101 mg/dL (60-115)
--- NOTE | 2024-09-12 10:42 | CRLHL7_ITS ---
For Patients: As a result of the Century Cures Act, medical imaging exams and procedure reports are released immediately into your electronic medical record. You may view this report before your referring provider. If you have questions, please contact your health care provider. Indication: Visual changes. Technique: Dtud-cl-hgxvvn and Gadolinium bolus MR angiogram of the neck with 3D MIP reconstructions provided. All measurements are based on NASCET criteria. Postcontrast images obtained after administration of 20 cc Dotarem Gadolinium-based IV contrast. Comparison: No prior studies available for comparison at this institution. Findings: Both carotid systems are unremarkable in the neck. No evidence for hemodynamically significant internal carotid artery stenosis by NASCET criteria. The cervical segments of both vertebral arteries are patent. The visualized portions of the aortic arch, great vessel origins and proximal subclavian arteries are unremarkable. Impression: Unremarkable MRA of the neck as far as visualized. Dictated by Iron Cook MD @ 09/12/2024 1:03:47 PM (Electronically Signed)
--- NOTE | 2024-09-12 10:42 | CRLHL7_ITS ---
For Patients: As a result of the Century Cures Act, medical imaging exams and procedure reports are released immediately into your electronic medical record. You may view this report before your referring provider. If you have questions, please contact your health care provider. Indication: visual changes Technique: 3D Tvvm-th-urrxka MR angiogram of the [id number]-bl-Amozpd with 3-dimensional MIP projections were submitted. Comparison: No prior studies available for comparison at this institution. Findings: The visualized first and second order intracranial vessels are unremarkable. No occlusion/filling defect or acquired arterial stenosis identified. No aneurysm or vascular malformation seen. Impression: No evidence of proximal arterial occlusion, aneurysm, dissection, or vascular malformation. Dictated by Iron Cook MD @ 09/12/2024 1:01:18 PM (Electronically Signed)
--- NOTE | 2024-09-12 10:42 | CRLHL7_ITS ---
For Patients: As a result of the Century Cures Act, medical imaging exams and procedure reports are released immediately into your electronic medical record. You may view this report before your referring provider. If you have questions, please contact your health care provider. Indication: Visual changes Technique: Noncontrast sagittal T1, axial FLAIR, T2 turbo spine echo, and diffusion weighted images. Supplemental post contrast T1 weighted axial and coronal sequences are provided after administration of 20 ml Dotarem gadolinium-based IV contrast. Comparison: CT head 09/12/2024 Findings: The ventricles, sulci and gyri are normal size, shape and contour for age. Multiple scattered foci of T2 prolongation in the supratentorial subcortical white matter are nonspecific. The midline structures are centrally located with no evidence of shift. There are no suspicious intra or extra-axial fluid collections. No evidence of restricted diffusion to suggest acute ischemia. Expected flow voids in the cavernous carotids and basilar artery. No abnormal contrast enhancement involving the brain parenchyma, meninges, calvarium or skull base. Left scleral buckle. Leftward deviation of the nasal septum. Impression: 1. No acute intracranial abnormality. 2. Few punctate scattered foci of T2 prolongation the supratentorial white are nonspecific but may represent sequela of migraine headaches, prior inflammation, or chronic small vessel disease. 3. No pathologic enhancement. 4. Left scleral buckle. Dictated by Iron Cook MD @ 09/12/2024 12:57:47 PM (Electronically Signed)
[2024-09-12 11:28] VITALS: BP 120/77; PULSE 86; RESP 18; TEMP 37; O2SAT 97
[2024-09-12 13:28] VITALS: BP 123/80; PULSE 82; RESP 18; TEMP 36.8; O2SAT 96
== END 2024-09-12 13:41 | disposition home or self-care (01) ==
PROVIDERS: Emergency Provider Family Medicine; PCP Family Medicine
DX: G43.B0 Ophthalmoplegic migraine, not intractable (principal)
CPT/HCPCS: 36415; 70450; 70544; 70549; 70553; 80053; 85025; 85610; 85730; 93005; 94761; 99285; A9575